=== PATIENT | female | born 1935 | race Caucasian/White ===

== ENCOUNTER 2016-06-11 21:49 | Inpatient (IN) ==
--- NOTE | 2016-06-11 22:27 | Emergency Department Note ---
START Narrative - START START: Dr. An called regarding the patient's status and had her sent in. The patient reportedly had an elevated BUN and creatinine per Dr. An is in acute renal failure. 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 She reports she has been feeling weak. There is no history of chest pain or mel shortness of breath. She denies any abdominal pain or diarrhea but threw up a few times yesterday there is no history of bloody emesis. There is no history of fall or syncope no trouble moving the arms or legs independently history of confusion. I have briefly seen the patient in order to start a workup, the patient will be managed by Dr. Jo and Perla Almendarez. Physical exam: The patient appears to be weak tired and Allegra but she is responsive and follows commands appropriately. HEENT normocephalic atraumatic cardiovascular S1 and S2 audible lungs decreased breath sounds bilaterally on anterior auscultation abdomen soft nontender nondistended no rebound rigidity or guarding extremities warm and well perfused without cyanosis muscle strength and sensation are generally intact cranial nerves II through XII are grossly intact. Preliminary studies have been ordered. An outpatient chest x-ray was already done today. Pending results. EKG shows a sinus rhythm without evidence of acute ST elevation. The T waves do not her to be peaked. Initial impression: Acute renal failure Hypoxemia Frail elderly The patient will likely require admission to the hospital.
[2016-06-11 22:39] LABS: Basophils % 0.5 %; Eosinophils # 0.7 K/mcL (0.0-0.6); Eosinophils % 11.7 %; Hematocrit 37.6 % (35.3-44.9); Hemoglobin 12.5 g/dL (11.5-15.4); Immature Granulocytes % 0.3 % (0-4); Lymphocytes # 1.1 K/mcL (0.6-4.6); Lymphocytes % 19.3 %; Mean Corpuscular HGB Conc 33.2 g/dL (31.6-35.5); Mean Corpuscular Hemoglobin 32.4 pg (28.0-33.3); Mean Corpuscular Volume 97.4 fL (83.0-100.0); Mean Platelet Volume 9.2 fL (9.4-12.4); Monocytes # 0.6 K/mcL (0.0-1.3); Monocytes % 9.5 %; Neutrophils # 3.5 K/mcL (1.6-8.9); Platelet Count 260 K/mcL (140-400); Red Blood Count 3.86 M/mcL (3.82-4.97); Red Cell Distribution Width 12.3 % (11.5-14.5); Segmented Neutrophils % 58.7 %
[2016-06-11] MEDS ORDERED: 0.9 % Sodium Chloride 1,000 ML IVC ONE (22:42)
[2016-06-11 22:44] LABS: Calcium 9.5 mg/dL (8.6-10.8); Magnesium 2.5 mg/dL (1.6-2.6); Potassium 4.3 mEq/L (3.5-4.5)
[2016-06-11 22:47] LABS: Albumin 3.6 g/dL (3.5-5.0); Albumin/Globulin Ratio 0.9 (1.1-2.2); Bilirubin,Direct 0.2 mg/dL (0.0-0.5); Bilirubin,Indirect 0.3 mg/dL (0.0-1.2); Bilirubin,Total 0.5 mg/dL (0.2-1.2); Globulin 3.8 g/dL (2.4-3.5); Total Protein 7.4 g/dL (6.0-8.3)
[2016-06-11] MEDS ORDERED: Ondansetron 4 MG/2 ML VIAL IVP ONE (23:30)
[2016-06-11] MEDS ORDERED: *HR* Morphine 2 MG/ML SYRINGE IV ONE (23:30)
--- NOTE | 2016-06-11 23:34 | Emergency Department Note ---
Disposition Clinical Impression: Acute renal failure Qualifiers: Acute renal failure type: unspecified Qualified Code(s): N17.9 - Acute kidney failure, unspecified Disposition: Admitted As Inpatient Condition: Fair General Adult HPI - General Chief complaint: ED General Medical Stated complaint: Kidney issue Time Seen by Provider: 06/11/16 23:02 Source: patient Mode of arrival: private vehicle Limitations: no limitations Nursing Notes Reviewed: Yes Vital Signs Reviewed: Yes - History of Present Illness Pt Subjective Complaint: weak all over, can't eat, back pain, called by PCP to come to ER - [facility]. Onset (ago): week(s) ("since ") Location: back Radiation: non-radiation Pain Severity: moderate, severe Pain Scale: 8 Quality: aching, constant Consistency: constant Improves with: nothing Worsens with: movement Associated symptoms: Reports: malaise, nausea/vomiting (vomited yesterday twice) , shortness of breath (a little bit today) Treatments Prior to Arrival: none - Related Data Home Medications Medication Instructions Recorded Confirmed Atenolol [Tenormin] 25 mg PO DAILY 01/10/15 06/11/16 Losartan/Hydrochlorothiazide 1 each PO DAILY 02/02/16 06/11/16 [Hyzaar 100-12.5 Tablet] Anastrozole [Arimidex] 1 mg PO DAILY 06/11/16 06/11/16 Fluticasone Propionate Nasal 50 mcg NS BID 06/11/16 06/11/16 [Flonase] Ipratropium Stark 1 spray NS BID 06/11/16 06/11/16 Multivitamin [Multi-Day Vitamins] 1 each PO DAILY 06/11/16 06/11/16 Previous Rx's Medication Instructions Recorded OxyCODONE Immed Rel [Roxicodone 5 5 mg PO BID PRN #60 tab 01/11/16 MG] Venlafaxine XR (24 HR) [Effexor XR] 37.5 mg PO DAILY #90 cap.er.24h 01/11/16 Gabapentin [Neurontin] 300 mg PO BID #60 capsule 02/23/16 Tamoxifen Citrate 20 mg PO DAILY #30 tab 04/05/16 Valacyclovir HCl [Valtrex] 1,000 mg PO Q12H #10 tab 04/05/16 Allergies Allergy/AdvReac Type Severity Reaction Status Date / Time KELSEY Inhibitors AdvReac Cough Verified 01/10/15 13:07 All systems ED: reviewed and negative except as stated. Constitutional: Reports: weakness. Denies: fever, chills, night sweats Eyes: Denies: vision change ENT ED: Reports: other (mouth and throat are very dry). Denies: ear pain, throat pain, congestion, dysphagia Cardiovascular: Reports: chest pain ("tightness under breasts when lying supine "), dyspnea on exertion. Denies: palpitations, orthopnea, edema, syncope Respiratory: Reports: dyspnea ("a little short of breath today"). Denies: cough , wheezes, hemoptysis, stridor, sputum production Gastrointestinal: Reports: nausea (constant, for weeks), vomiting (twice yesterday). Denies: abdominal pain, diarrhea, constipation (Last BM was yesterday), hematemesis, melena, hematochezia Genitourinary: Reports: other (decreased urine output). Denies: urgency, dysuria, frequency, hematuria Musculoskeletal: Reports: as per HPI, back pain. Denies: joint swelling Integumentary: Denies: rash Neurological: Reports: weakness ("all over"). Denies: headache, confusion, vertigo Hematological/Lymphatic: Denies: easy bleeding, easy bruising, lymphadenopathy Past Medical History - Past Medical History Attestation: Yes The following information was validated with the patient. Source: patient Medical history: Reports: cancer, hypertension, other (spinal stenosis) Surgical history: Reports: hysterectomy, other Psychiatric history: Reports: no psych history - Social History Smoking Status: Former smoker Alcohol use: Reports: none Drug use: Reports: none Physical Exam - General Limitations: no limitations General appearance: alert, in no apparent distress, cachectic - Head Head exam: atraumatic, normocephalic, normal inspection - Eye Eye exam: Present: normal appearance, PERRL, EOMI. Absent: scleral icterus, conjunctival injection, nystagmus, miosis, mydriasis, periorbital swelling - ENT ENT exam: mucous membranes dry - Neck Neck exam: Present: normal inspection, full ROM, trachea midline. Absent: tenderness, meningismus, lymphadenopathy - Chest Chest inspection: Present: normal inspection, symmetric chest wall rise. Absent : tenderness - Respiratory Respiratory exam: Present: normal lung sounds bilaterally. Absent: respiratory distress, wheezes, stridor, accessory muscle use, prolonged expiratory phase - Cardiovascular Cardiovascular exam: Present: regular rate, normal rhythm, normal heart sounds - Abdominal Exam Abdominal exam: Present: soft, tenderness, diminished bowel sounds. Absent: distention, guarding, rebound, rigidity, mass Abdominal tenderness: Present: RUQ, LUQ, mild - Extremities Exam Extremities exam: Present: normal inspection, full ROM. Absent: pedal edema - Back Exam Back exam: Present: normal inspection, CVA tenderness (R), CVA tenderness (L) - Neurological Exam Neurological exam: Present: alert, oriented X3, CN II-XII intact - Psychiatric Psychiatric exam: Present: normal affect, normal mood - Skin Skin exam: Present: warm, dry, intact, normal color Course Vital Signs Temperature 98.1 F 06/11/16 21:52 Pulse Rate 63 06/11/16 21:52 Respiratory Rate 14 06/11/16 21:52 Blood Pressure 114/70 06/11/16 21:52 O2 Sat by Pulse Oximetry 91 L 06/11/16 21:52 Temperature 97.8 F 06/12/16 07:51 Pulse Rate 52 06/12/16 07:51 Respiratory Rate 16 06/12/16 07:51 Blood Pressure 105/66 06/12/16 07:51 O2 Sat by Pulse Oximetry 100 06/12/16 07:51 Oxygen Delivery Oxygen Delivery Nasal Cannula Medical Decision Making - Lab Data Result diagrams: 06/11/16 22:17 06/11/16 22:17 Lab Results 06/11/16 06/11/16 06/11/16 Range/Units 22:17 22:17 22:17 WBC 5.9 (4.3-11.1) K/mcL RBC 3.86 (3.82-4.97) M/mcL Hgb 12.5 (11.5-15.4) g/dL Hct 37.6 (35.3-44.9) % MCV 97.4 (83.0-100.0) fL MCH 32.4 (28.0-33.3) pg MCHC 33.2 (31.6-35.5) g/dL RDW 12.3 (11.5-14.5) % Plt Count 260 (140-400) K/mcL MPV 9.2 L (9.4-12.4) fL Immature Gran % 0.3 (0-4) % Seg Neutrophils % 58.7 % Lymphocytes % 19.3 % Monocytes % 9.5 % Eosinophils % 11.7 % Basophils % 0.5 % Neutrophils # 3.5 (1.6-8.9) K/mcL Lymphocytes # 1.1 (0.6-4.6) K/mcL Monocytes # 0.6 (0.0-1.3) K/mcL Eosinophils # 0.7 H (0.0-0.6) K/mcL Basophils # 0.0 (0.0-0.2) K/mcL Sodium 136 (136-145) mEq/L Potassium 4.3 (3.5-4.5) mEq/L Chloride 103 (98-109) mEq/L Carbon Dioxide 19 (19-29) mEq/L BUN 59 H (7-20) mg/dL Creatinine 5.02 H (0.57-1.11) mg/dL Est GFR ( Amer) 10 L (> 60) Est GFR (Non-Af Amer) 8 L (> 60) BUN/Creatinine Ratio 12 (6-26) Glucose 132 H (70-99) mg/dL Calculated Osmolality 300 (280-300) Calcium 9.5 (8.6-10.8) mg/dL Magnesium 2.5 (1.6-2.6) mg/dL Total Bilirubin (0.2-1.2) mg/dL Direct Bilirubin (0.0-0.5) mg/dL Indirect Bilirubin (0.0-1.2) mg/dL AST (5-34) Units/L ALT (0-55) Units/L Alkaline Phosphatase (38-126) Units/L Troponin I 0.00 (0-0.03) ng/mL B-Natriuretic Peptide (0-100) pg/mL Serum Total Protein (6.0-8.3) g/dL Albumin (3.5-5.0) g/dL Globulin (2.4-3.5) g/dL Albumin/Globulin Ratio (1.1-2.2) 06/11/16 06/11/16 Range/Units 22:17 22:17 WBC (4.3-11.1) K/mcL RBC (3.82-4.97) M/mcL Hgb (11.5-15.4) g/dL Hct (35.3-44.9) % MCV (83.0-100.0) fL MCH (28.0-33.3) pg MCHC (31.6-35.5) g/dL RDW (11.5-14.5) % Plt Count (140-400) K/mcL MPV (9.4-12.4) fL Immature Gran % (0-4) % Seg Neutrophils % % Lymphocytes % % Monocytes % % Eosinophils % % Basophils % % Neutrophils # (1.6-8.9) K/mcL Lymphocytes # (0.6-4.6) K/mcL Monocytes # (0.0-1.3) K/mcL Eosinophils # (0.0-0.6) K/mcL Basophils # (0.0-0.2) K/mcL Sodium (136-145) mEq/L Potassium (3.5-4.5) mEq/L Chloride (98-109) mEq/L Carbon Dioxide (19-29) mEq/L BUN (7-20) mg/dL Creatinine (0.57-1.11) mg/dL Est GFR ( Amer) (> 60) Est GFR (Non-Af Amer) (> 60) BUN/Creatinine Ratio (6-26) Glucose (70-99) mg/dL Calculated Osmolality (280-300) Calcium (8.6-10.8) mg/dL Magnesium (1.6-2.6) mg/dL Total Bilirubin 0.5 (0.2-1.2) mg/dL Direct Bilirubin 0.2 (0.0-0.5) mg/dL Indirect Bilirubin 0.3 (0.0-1.2) mg/dL AST 18 (5-34) Units/L ALT 21 (0-55) Units/L Alkaline Phosphatase 65 (38-126) Units/L Troponin I (0-0.03) ng/mL B-Natriuretic Peptide 26 (0-100) pg/mL Serum Total Protein 7.4 (6.0-8.3) g/dL Albumin 3.6 (3.5-5.0) g/dL Globulin 3.8 H (2.4-3.5) g/dL Albumin/Globulin Ratio 0.9 L (1.1-2.2) Attestation Statement - Attestation Attestation: For this encounter, I have reviewed the resident, [employer], or PA documentation, treatment plan, and medical decision making; and I have had face to face time with this patient. 80-year-old female presents with increasing weakness and fatigue over the past 3 weeks. Patient states that she never had symptoms like this before in the past. She was evaluated by her primary care provider in the office but was unable to urinate. Further evaluation reveals acute renal failure. Patient denies recent trauma or changes in her medications. On physical examination the patient reports mild suprapubic pain without evidence of CVA tenderness or other abdominal guarding or rigidity. Lungs are clear to auscultation bilaterally. Patient will be admitted to the hospital for further care and evaluation. Patient is comfortable with the plan for admission.
[2016-06-12 03:14] LABS: Bilirubin,Urine Small (Negative); Blood,Urine Trace (Negative); Clarity,Urine Cloudy (Clear); Color,Urine Yellow (Yellow); Glucose,Urine (UA) Normal (Normal); Ketones,Urine Trace mg/dL (Negative); Leukocyte Esterase,Urine Moderate (Negative); Nitrite,Urine Positive (Negative); PH,Urine 5.5 pH Units (5.0-8.0); Protein,Urine Trace mg/dL (Neg-Trace); Specific Gravity,Urine 1.018 (1.010-1.025); Urobilinogen,Urine Normal (Normal)
[2016-06-12 03:17] LABS: Bacteria,Urine Many per hpf (None-Few); Hyaline Casts,Urine Few per lpf (None-Few); Squamous Epithelial Cell,Urine Many per lpf (None-Few); WBC,Urine 50-100 per hpf (0-3)
[2016-06-12] MEDS ORDERED: *HR* Morphine 2 MG/ML SYRINGE IVP PRN (04:06)
[2016-06-12] MEDS ORDERED: Ondansetron 4 MG/2 ML VIAL IVP PRN (04:06)
[2016-06-12] MEDS ORDERED: Naloxone 0.4 MG/ML INJ IVP PRN (04:06)
[2016-06-12] MEDS ORDERED: Acetaminophen 325 MG TABLET PO PRN (04:06)
[2016-06-12] MEDS ORDERED: *HR* OxyCODONE Immed Rel 5 MG TABLET PO PRN ×2 (04:06→17:46)
--- NOTE | 2016-06-12 04:30 | Internal Med History&Physical ---
Date of Encounter: 06/12/16 Time of Encounter: 04:00 Assessment and Plan (1) Acute kidney injury superimposed on CKD Current visit: Yes Status: Acute . (2) Hypoxemia Current visit: Yes Status: Acute . (3) Urinary tract infection Current visit: Yes Status: Acute . Qualifiers: Urinary tract infection type: acute cystitis Hematuria presence: with hematuria Qualified Code(s): N30.01 - Acute cystitis with hematuria (4) Breast cancer, right Current visit: Yes Status: Resolved . Qualifiers: Breast location: unspecified site of breast Patient gender: female Qualified Code(s): C50.911 - Malignant neoplasm of unspecified site of right female breast (5) Acute hypercapnic respiratory failure Current visit: Yes Status: Acute . (6) Metabolic acidosis Current visit: Yes Status: Acute . (7) Hyperglycemia, unspecified Current visit: Yes Status: Acute . (8) Hypocalcemia Current visit: Yes Status: Acute . (9) Secondary hyperparathyroidism (of renal origin) Current visit: Yes Status: Acute . (10) COPD suggested by initial evaluation Current visit: Yes Status: Acute . (11) Former very heavy cigarette smoker (more than 40 per day) Current visit: Yes Status: Chronic . (12) Renal mass of unknown nature Current visit: Yes Status: Acute . (13) History of lumpectomy of right breast Current visit: Yes Status: Chronic . (14) History of tamoxifen therapy Current visit: Yes Status: Chronic . Internal Medicine - H&P: HPI Chief complaint: Flank pain. Weakness. Admitted From: Emergency Dept Plans for Post Hospital Care: Home History of present illness: Ms. Narayan is a 80 year old female with history significant for hypertension, right breast cancer invasive ductal carcinoma s/p lumpectomy, sentinel node biopsy and adjuvant chemotherapy(tamoxifen), chronic sinorhinitis/allergic rhinitis, depression and anxiety, CKD III, osteoarthritis, osteopenia, lumbar spinal stenosis/LBP, ?COPD, former smoker The patient was visited and interviewed and examined. The patient is admitted to [facility] via the emergency department request of her primary care physician. The patient had been feeling ill for several weeks since the holiday season but worse in the days leading up to admission that led her to be seen by her PCP for evaluation. Several tests were obtained which showed a markedly elevation in her BUN and creatinine spurring her PCP to encourage her to present to the ED for evaluation of new onset, acute renal failure. The patient described an ongoing feeling of generalized weakness. Diffuse body aches. He experienced some nauseation with emesis. Denied any hematemesis melena or red blood per rectum or watery diarrhea. She acknowledges some chills but denies any overt fever or sweats. Denies any syncopal or presyncopal complaints chest pain PND orthopnea or edema. Denied any chest pain abdominal pain. She did experience some back/ flank pain. Denies rash. Acknowledged a generalized headache. Denied any visual disturbances unilateral weakness slurred speech alteration in mental status. Which is some shortness of breath at rest and with activity but without cough or chest congestion or sputum production and dry. Mouth and throat.. Cannot acknowledge any sick contacts. Denies any travel. Vaccinations are reportedly up-to-date for this season. Findings in the ED: Temperature 98.1 pulse 63 respirations 16 BP 114-142/70-78 titration 91% at 2 L per nasal cannula. WBC 5.9 hemoglobin 12.5 platelets 260,000. MPV 9.2. Differential showed a slight increase in eosinophil. Metabolic panel normal except BUN 59 creatinine 5.02 GFR 8. Glucose 132 osmolality 300. Troponin 0.00. BNP 26. Hepatic function normal. Venous blood gas pH 7.29 PCO2 53 PO2 48 bicarbonate 25. Urinalysis turbid appearance. Small blood. Large leukocyte esterase. 15 RBC with numerous to count WBC. Many epithelial cells. Many bacteria. CT abdomen/pelvis no contrast demonstrates no acute process. No hydronephrosis. Enlarging soft tissue density in the right breast. Minor atelectasis versus scarring middle lobe. Left lower lobe pulmonary nodules. There are no diverticulum. No bowel obstruction. Appendix not identified. Status post hysterectomy. Bladder grossly negative. No pelvic mass or adenopathy. No evidence of mesenteric stranding and free fluid. Aorta caliber within normal limits. Spiculated soft tissue density in the deep fat of the right breast. Changes in the lumbar spine. Preliminary impression suggests acute on chronic stage V kidney injury in the setting of severe acute urinary tract infection. Radiographically there is no evidence for obstruction contributing to acute events. Baseline creatinine in 2016 ranged between 1.3- 1.76 and GFR of 28-40. Indeed chronic kidney disease stage III has been present as far back as early 2014. Etiology for renal function decline is not done readily apparent. Presentation is noteworthy for degree of apparent toxemia and discomfort the patient is experiencing. However, systemic inflammatory response syndrome or sepsis criteria and are fully mad at the time of admission. Chest tingly although the patient does not carry a acknowledge diagnosis of COPD given her remote history of significant tobacco usage her venous blood gas does show degree of CO2 retention and acidosis coinciding with her shortness of breath complaint. Patient presents further risks for acute clinical decline and morbidity given her presenting chief complaints clinical findings, frailty and comorbidities. Workup and treatment will progress comprehensively.. Cumulative laboratory and radiographic data base was reviewed, considered and discussed. Pertinent ancillary medical records including ECW and PCI documentation, when available, was reviewed and considered. Given the patient's presenting concerns, past medical history, clinical findings and symptoms, she is admitted at this time will undergo further evaluation and disposition. Orders were written as per the computerized physician blood bank order control clerk system.......................................................................... .................... Consultative opinion and will be sought as clinical circumstances justify. Initial consultative opinion has been requested of nephrology. Pain management needs will be addressed. Laboratory and radiographic data base will be updated as appropriate. Studies include: Cultures of blood and urine and sputum, cardiac injury panel, BNP, cpk , metabolic and hematologic panel, magnesium, phosphorus, ionized calcium, thyroid panel, lipid profile, A1c, C-peptide, CRP, sedimentation rate, respiratory infection profile, respiratory virus panel, blood gas, urinalysis, PTH intact, coagulation panel, acute hepatitis profile, random urine assays, lactic acid, serologies, etc. Precautions: Aspiration, fall, delirium protocol/surveillance initiated. Telemetry with continuous hemodynamic monitoring and pulse oximetry initiated. Orthostatic vital signs Empiric antibody coverage: Intravenous Rocephin pending culture data. Special studies: CT abd/pelvis, chest x-ray, telemetry, EKG, bladder scan, postvoid residual, ultrasound retroperitoneum. Pulmonary toilet: Incentive spirometry. When necessary aerosol bronchodilator, mucolytic, antitussive. Supplemental oxygen. Corticosteroid therapy prn. CPAP /BiPAP supplemental oxygen delivery prn. Aerosol Mucomyst therapy prn. Fluid and electrolyte repletion efforts will proceed. Careful attention to fluid balance and renal recovery will be emphasized. Avoidance of nephrotoxic exposure and adverse drug drug interaction in the setting of impaired renal function will be monitored closely. Correction of metabolic and acid-base deficits will be emphasized. Acute coronary syndrome protocol/surveillance initiated. DVT and PUD prophylaxis initiated: PPI therapy, intermittent pneumatic cuffs. Subcutaneous heparin. Early ambulation will be encouraged. Immunization updates recommended. Influenza and pneumococcal vaccinations as part of ongoing preventative healthcare recommendations strongly recommended. Smoking cessation counseling briefly addressed. Patient is a former smoker. Advanced care directive discussion briefly addressed. Patient does not declare any healthcare restrictions at this time. Cardiovascular risk appraisal and cardiovascular risk reduction efforts will be emphasized. Physical and occupational therapy may be consulted to evaluate/assess patient's functional capacity and progress mobility if her circumstances warrant. Outpatient medication schedules will be reviewed confirmed and facilitated as appropriate. Reconciliation of home treatments including adjustments, substitutions and reintroduction into the treatment regimen will address necessary maintenance therapies for chronic pre-existing medical conditions. Plan of care has been reviewed and discussed in detail with the patient. Questions addressed. Hospital course is dependent upon collective clinical findings, treatment response and potential consultative interventions. Patient is at risk for further acute clinical decline and morbidity due to her advanced age, presenting chief complaints, findings and comorbidities. Condition is serious. Prognosis is cautiously optimistic. CODE STATUS is full. Past Med Surg Social Fam HX - Past Medical History Source: old records reviewed Medical history: arthritis, cancer, hypertension, malignancy, osteoporosis, other Psychiatric history: anxiety - Past Surgical History Surgical History: breast surgery, cancer surgery, cataract, cholecystectomy, hysterectomy, ALINA/BSO, other - Social History Smoking Status: Former smoker Packs per day: Smoked 2 packs per day for 20 years. Quit smoking 20 years ago. Smokeless Tobacco Status: No Alcohol use: none Drug use: none Occupational status: retired Current living situation: Home - Independent Activity Level: Independent ambulation, Mostly sedentary Recent Out of Country Travel Within the Last 8 Weeks: No - Family History Mother History Unknown: Yes Adopted: Yes Name: Agnes Mcdaniel Family Member Ethnicity: Non- Living Status: Age at : 66 Cause of : paratenitis Hx Family Cardiac Disorders: No Hx Family Respiratory Disorders: No Hx Family Cancer: No Hx Family GI Disorders: No Hx Family Genitourinary Disorders: No Hx Family Endocrine Disorder: Yes Hx Family Musculoskeletal Disorders: No Hx Family Neuromuscular Disorders: No Hx Family Neurologic Disorders: No Hx Family HEENT Disorders: No Hx Family Autoimmune Disorders: No Hx Family Reproductive Disorders: No Hx Family Psychosocial Disorders: No Hx Family Medical Disorders: No Internal Medicine - H&P: Meds Atenolol [Tenormin] 25 mg PO DAILY 01/10/15 [History] OxyCODONE Immed Rel [Roxicodone 5 MG] 5 mg PO BID PRN #60 tab 01/11/16 [Rx] Venlafaxine XR (24 HR) [Effexor XR] 37.5 mg PO DAILY #90 cap.er.24h 01/11/16 [Rx ] Losartan/Hydrochlorothiazide [Hyzaar 100-12.5 Tablet] 1 each PO DAILY 02/02/16 [ History] Gabapentin [Neurontin] 300 mg PO BID #60 capsule 02/23/16 [Rx] Tamoxifen Citrate 20 mg PO DAILY #30 tab 04/05/16 [Rx] Valacyclovir HCl [Valtrex] 1,000 mg PO Q12H #10 tab 04/05/16 [Rx] Anastrozole [Arimidex] 1 mg PO DAILY 06/11/16 [History] Fluticasone Propionate Nasal [Flonase] 50 mcg NS BID 06/11/16 [History] Ipratropium [place] 1 spray NS BID 06/11/16 [History] Multivitamin [Multi-Day Vitamins] 1 each PO DAILY 06/11/16 [History] Allergies KELSEY Inhibitors Adverse Reaction (Verified 01/10/15 13:07) Cough All Systems PM: A 10-system review of systems was performed and is negative for pertinent findings except as documented above in the HPI. - Constitutional Constitutional: as per HPI, malaise, no chills, no fever(s), no night sweats - EENT Eyes: as per HPI, no change in vision, no discharge, no pain, no photophobia Ears: as per HPI, no ear discharge, no ear pain, no tinnitus Nose, mouth and throat: as per HPI, no dysphagia, no nasal discharge, no neck pain, no sore throat - Breasts Breasts: as per HPI, other - Cardiovascular Cardiovascular ROS IM: as per HPI, no chest pain, no diaphoresis, no dyspnea, no lightheadedness, no palpitations, no syncope - Respiratory Respiratory: as per HPI, no cough, no dyspnea, no wheezing, no excessive phlegm production - Gastrointestinal Gastrointestinal: as per HPI, no abdominal pain, no diarrhea, no hematemesis, no hematochezia, no melena, no nausea, no vomiting - Genitourinary Genitourinary: as per HPI, flank pain, other, no change in urinary stream, no dysuria, no hematuria Menstruation: as per HPI, post hysterectomy - Musculoskeletal Musculoskeletal ROS IM: as per HPI, no numbness, no tingling - Integumentary Integumentary IM: as per HPI, no rash, no unusual bruising - Neurological Neurological ROS: as per HPI, no confusion, no convulsions, no focal weakness, no numbness, no tingling, no tremor(s) - Psychiatric Psychiatric: as per HPI - Endocrine Endocrine IM: as per HPI - Hematologic/Lymphatic Hematologic/Lymphatic: as per HPI, no easy bruising - Allergic/Immunologic Allergic/Immunologic: as per HPI - Constitutional Vitals: Temp Pulse Resp BP Pulse Ox 97.6 F 55 18 129/66 98 06/12/16 02:32 06/12/16 02:32 06/12/16 02:32 06/12/16 02:32 06/12/16 02:32 General appearance: Present: mild distress, A&O X 3, answers questions appropriately - Head Head exam: Present: atraumatic, normocephalic - Eye Eye exam: Present: EOMI, PERRL, conjuntiva pink, sclera anicteric Pupils: Present: normal accommodation, PERRL - ENT ENT exam: Present: mucous membranes moist, normal external ear exam, normal oropharynx - Neck Neck exam general surgery: Present: full ROM, supple, trachea midline. Absent: lymphadenopathy, tenderness, nuchal rigidity - Respiratory Respiratory exam: Present: decreased breath sounds, CTAB. Absent: accessory muscle use, rales, rhonchi, wheezes - Cardiovascular Cardiovascular exam: Present: distant heart sounds, RRR, +S1, +S2. Absent: diastolic murmur, gallop, rubs, systolic murmur - GI/Abdominal GI/Abdominal exam: Present: diminished bowel sounds, soft, no peritoneal signs. Absent: distended, tenderness - Extremities Exam Extremities exam: Present: full ROM, warm, radial pulses palpable and symetrical. Absent: calf tenderness, cyanotic, pedal edema - Neurological Exam Neurological exam: Present: alert, altered, CN II-XII intact, oriented X3, no focal deficits. Absent: pronater drift, facial droop, speech deficit - Expanded Neurological Exam Coma Scale Eye Opening: Spontaneous Coma Scale Motor Response: Obeys Commands Coma Scale Verbal Response: Oriented Coma Scale Total: 15 - Psychiatric Psychiatric exam: Present: anxious, normal affect - Expanded Psychiatric Exam Focused psych exam: Present: restlessness - Skin Skin exam: Present: dry, intact, warm. Absent: petechiae, rash, urticaria, vesicles Internal Med - H&P Results - Labs CBC & Chem 7: 06/11/16 22:17 06/11/16 22:17 Labs: Urine 06/12/16 Range/Units 03:00 Urine Color Yellow (Yellow) Urine Clarity Cloudy A (Clear) Urine pH 5.5 (5.0-8.0) pH Units Ur Specific [place] 1.018 (1.010-1.025) Urine Protein Trace (Neg-Trace) mg/dL Urine Glucose (UA) Normal (Normal) mg/dL - Impressions Vital Signs Temp Pulse Resp BP Pulse Ox 06/12/16 02:32 97.6 F 55 18 129/66 98 06/12/16 01:53 98.1 F 16 107/66 06/12/16 01:38 55 16 107/66 100 06/11/16 23:42 63 16 142/78 06/11/16 21:52 98.1 F 63 14 114/70 91 L Intake and Output 06/11/16 06/11/16 06/12/16 15:59 23:59 07:59 Intake Total 0 / 0 Balance 0 / 0 Intake: Oral 0 / 0 Other: Weight 64.41 kg 67.8 kg Patient Weight 06/12/16 23:59 Weight 67.8 kg Short CBC 06/11/16 Range/Units 22:17 WBC 5.9 (4.3-11.1) K/mcL Hgb 12.5 (11.5-15.4) g/dL Hct 37.6 (35.3-44.9) % Plt Count 260 (140-400) K/mcL Neutrophils # 3.5 (1.6-8.9) K/mcL BMP 06/11/16 Range/Units 22:17 Sodium 136 (136-145) mEq/L Potassium 4.3 (3.5-4.5) mEq/L Chloride 103 (98-109) mEq/L Carbon Dioxide 19 (19-29) mEq/L BUN 59 H (7-20) mg/dL Creatinine 5.02 H (0.57-1.11) mg/dL Glucose 132 H (70-99) mg/dL Calcium 9.5 (8.6-10.8) mg/dL Cardiac Enzymes 06/11/16 Range/Units 22:17 Troponin I 0.00 (0-0.03) ng/mL Liver Function 06/11/16 Range/Units 22:17 Total Bilirubin 0.5 (0.2-1.2) mg/dL Direct Bilirubin 0.2 (0.0-0.5) mg/dL AST 18 (5-34) Units/L ALT 21 (0-55) Units/L Alkaline Phosphatase 65 (38-126) Units/L Albumin 3.6 (3.5-5.0) g/dL Urine 06/12/16 Range/Units 03:00 Urine Color Yellow (Yellow) Urine Clarity Cloudy A (Clear) Urine pH 5.5 (5.0-8.0) pH Units Ur Specific [place] 1.018 (1.010-1.025) Urine Protein Trace (Neg-Trace) mg/dL Urine Glucose (UA) Normal (Normal) mg/dL Abnormal lab results MPV 9.2 fL (9.4-12.4) L 06/11/16 22:17 Eosinophils # 0.7 K/mcL (0.0-0.6) H 06/11/16 22:17 BUN 59 mg/dL (7-20) H 06/11/16 22:17 Creatinine 5.02 mg/dL (0.57-1.11) H 06/11/16 22:17 Est GFR ( Amer) 10 (> 60) L 06/11/16 22:17 Est GFR (Non-Af Amer) 8 (> 60) L 06/11/16 22:17 Glucose 132 mg/dL (70-99) H 06/11/16 22:17 Globulin 3.8 g/dL (2.4-3.5) H 06/11/16 22:17 Albumin/Globulin Ratio 0.9 (1.1-2.2) L 06/11/16 22:17 Urine Clarity Cloudy (Clear) A 06/12/16 03:00 Urine Ketones Trace mg/dL (Negative) H 06/12/16 03:00 Urine Blood Trace (Negative) H 06/12/16 03:00 Urine Nitrite Positive (Negative) A 06/12/16 03:00 Urine Bilirubin Small (Negative) H 06/12/16 03:00 Ur Leukocyte Esterase Moderate (Negative) H 06/12/16 03:00 Urine Microscopic RBC 5-15 per hpf (0-3) H 06/12/16 03:00 Urine Microscopic WBC 50-100 per hpf (0-3) H 06/12/16 03:00 Ur Squamous Epith Cells Many per lpf (None-Few) H 06/12/16 03:00 Urine Bacteria Many per hpf (None-Few) H 06/12/16 03:00 Ur Culture Indicated? YES (NO) A 06/12/16 03:00 Allergies Allergy/AdvReac Type Severity Reaction Status Date / Time KELSEY Inhibitors AdvReac Cough Verified 01/10/15 13:07 Laboratory Results WBC 5.9 K/mcL (4.3-11.1) 06/11/16: RBC 3.86 M/mcL (3.82-4.97) 06/11/16 22: Hgb 12.5 g/dL (11.5-15.4) 06/11/16: Hct 37.6 % (35.3-44.9) 06/11/16 22: MCV 97.4 fL (83.0-100.0) 06/11/16 22: MCH 32.4 pg (28.0-33.3) 06/11/16: MCHC 33.2 g/dL (31.6-35.5) 06/11/16: RDW 12.3 % (11.5-14.5) 06/11/16 22:17 Plt Count 260 K/mcL (140-400) 06/11/16 22: MPV 9.2 fL (9.4-12.4) L 06/11/16 22:17 Immature Gran % 0.3 % (0-4) 06/11/16 22:17 Seg Neutrophils % 58.7 % 06/11/16 22:17 Lymphocytes % 19.3 % 06/11/16 22:17 Monocytes % 9.5 % 06/11/16 22:17 Eosinophils % 11.7 % 06/11/16 22:17 Basophils % 0.5 % 06/11/16 22:17 Neutrophils # 3.5 K/mcL (1.6-8.9) 06/11/16 22:17 Lymphocytes # 1.1 K/mcL (0.6-4.6) 06/11/16 22: Monocytes # 0.6 K/mcL (0.0-1.3) 06/11/16 22: Eosinophils # 0.7 K/mcL (0.0-0.6) H 06/11/16 22:17 Basophils # 0.0 K/mcL (0.0-0.2) 06/11/16 22:17 Sodium 136 mEq/L (136-145) 06/11/16 22:17 Potassium 4.3 mEq/L (3.5-4.5) 06/11/16 22:17 Chloride 103 mEq/L (98-109) 06/11/16 22:17 Carbon Dioxide 19 mEq/L (19-29) 06/11/16 22:17 BUN 59 mg/dL (7-20) H 06/11/16 22:17 Creatinine 5.02 mg/dL (0.57-1.11) H 06/11/16 22:17 Est GFR ( Amer) 10 (> 60) L 06/11/16 22:17 Est GFR (Non-Af Amer) 8 (> 60) L 06/11/16 22:17 BUN/Creatinine Ratio 12 (6-26) 06/11/16 22:17 Glucose 132 mg/dL (70-99) H 06/11/16 22:17 Calculated Osmolality 300 (280-300) 06/11/16 22:17 Calcium 9.5 mg/dL (8.6-10.8) 06/11/16 22:17 Magnesium 2.5 mg/dL (1.6-2.6) 06/11/16 22: Total Bilirubin 0.5 mg/dL (0.2-1.2) 06/11/16 22: Direct Bilirubin 0.2 mg/dL (0.0-0.5) 06/11/16 22:17 Indirect Bilirubin 0.3 mg/dL (0.0-1.2) 06/11/16 22:17 AST 18 Units/L (5-34) 06/11/16 22: ALT 21 Units/L (0-55) 06/11/16 22: Alkaline Phosphatase 65 Units/L (38-126) 06/11/16 22: Troponin I 0.00 ng/mL (0-0.03) 06/11/16 22: B-Natriuretic Peptide 26 pg/mL (0-100) 06/11/16 22: Serum Total Protein 7.4 g/dL (6.0-8.3) 06/11/16 22: Albumin 3.6 g/dL (3.5-5.0) 06/11/16: Globulin 3.8 g/dL (2.4-3.5) H 06/11/16 22: Albumin/Globulin Ratio 0.9 (1.1-2.2) L 06/11/16 22:17 Urine Color Yellow (Yellow) 06/12/16 03:00 Urine Clarity Cloudy (Clear) A 06/12/16 03:00 Urine pH 5.5 pH Units (5.0-8.0) 06/12/16 03:00 Ur Specific [place] 1.018 (1.010-1.025) 06/12/16 03:00 Urine Protein Trace mg/dL (Neg-Trace) 06/12/16 03:00 Urine Glucose (UA) Normal mg/dL (Normal) 06/12/16 03:00 Urine Ketones Trace mg/dL (Negative) H 06/12/16 03:00 Urine Blood Trace (Negative) H 06/12/16 03:00 Urine Nitrite Positive (Negative) A 06/12/16 03:00 Urine Bilirubin Small (Negative) H 06/12/16 03:00 Urine Urobilinogen Normal mg/dL (Normal) 06/12/16 03:00 Ur Leukocyte Esterase Moderate (Negative) H 06/12/16 03:00 Urine Microscopic RBC 5-15 per hpf (0-3) H 06/12/16 03:00 Urine Microscopic WBC 50-100 per hpf (0-3) H 06/12/16 03:00 Ur Squamous Epith Cells Many per lpf (None-Few) H 06/12/16 03:00 Urine Bacteria Many per hpf (None-Few) H 06/12/16 03:00 Hyaline Casts Few per lpf (None-Few) 06/12/16 03:00 Ur Culture Indicated? YES (NO) A 06/12/16 03:00 Impressions Abdomen/Pelvis CT 06/12/16 00:01 IMPRESSION: 1. No acute process identified. No hydronephrosis. 2. Enlarging soft tissue density in the right breast. Correlation with mammography is recommended. D/ / Alex Banerjee MD / Alex Banerjee MD Interpreting Provider: Alex Banerjee MD
[2016-06-12] MEDS: *HR* Heparin 5,000 UNIT/ML VIAL SQ SCH ×2 (05:10→16:54)
[2016-06-12] MEDS: 0.9 % Sodium Chloride 1,000 ML IVC SCH ×2 (05:10→16:06)
[2016-06-12 06:52] LABS: Bilirubin,Urine Negative (Negative); Blood,Urine Small (Negative); Clarity,Urine Turbid (Clear); Color,Urine Yellow (Yellow); Glucose,Urine (UA) Normal (Normal); Ketones,Urine Negative (Negative); Leukocyte Esterase,Urine Large (Negative); Nitrite,Urine Negative (Negative); PH,Urine 5.5 pH Units (5.0-8.0); Protein,Urine Negative (Neg-Trace); Specific Gravity,Urine 1.017 (1.010-1.025); Urobilinogen,Urine Normal (Normal)
[2016-06-12 06:54] LABS: Bacteria,Urine Many per hpf (None-Few); Hyaline Casts,Urine None Seen per lpf (None-Few); Squamous Epithelial Cell,Urine Many per lpf (None-Few); WBC,Urine TNTC per hpf (0-3)
[2016-06-12 07:00] LABS: Creatinine,Urine 205 mg/dL; Microalbum/Creatinine Ratio,Ur 15 (0-30); Microalbumin,Urine 30 mg/L
[2016-06-12 07:11] LABS: VBG HCO3 25.5 mEq/L (21-27); VBG PH 7.29 pH Units (7.32-7.42)
[2016-06-12 07:26] LABS: INR 1.1; Prothrombin Time 11.8 Seconds (9.4-12.1)
[2016-06-12 07:27] LABS: Hemoglobin A1C 5.5 %
[2016-06-12 07:29] LABS: Activated Partial Thrombo Time 24.8 Seconds (26.0-36.0)
[2016-06-12 07:30] LABS: C-Reactive Protein 10 mg/L (Less than 5); Creatine Kinase 15 Units/L (29-168)
[2016-06-12 07:39] LABS: Chol/HDL Ratio 4.9 (0-4.9); Magnesium 2.2 mg/dL (1.6-2.6); Phosphorous 3.9 mg/dL (2.3-4.7)
[2016-06-12 07:54] LABS: Thyroid Stimulating Hormone 2.938 mcIU/mL (0.350-4.840)
--- NOTE | 2016-06-12 08:15 | Nephrology Consult Note ---
Date of Encounter: 06/12/16 Time of Encounter: 08:13 Assessment and Plan (1) Acute kidney injury superimposed on CKD Current Visit: Yes Status: Acute Patient has acute kidney injury superimposed on chronic kidney disease. Baseline creatinine appears to be 1.3-1.76. This is occurring in the setting of generalized weakness and anorexia with decreased oral intake. Urinalysis suggested urinary tract infection as well. Patient is currently receiving IV fluids and says she feels somewhat better today. Urine culture is pending. Patient is been placed on empiric antibiotics. Post void bladder scan has been ordered. I am going to order renal ultrasound to further evaluate kidney size and rule out hydronephrosis. Hopefully the patient's renal function will improve with the current medical regimen and IV fluids. (2) Urinary tract infection Current Visit: Yes Status: Acute Qualifiers: Urinary tract infection type: acute cystitis Hematuria presence: with hematuria Qualified Code(s): N30.01 - Acute cystitis with hematuria (3) Breast cancer, right Current Visit: No Status: Chronic Qualifiers: Breast location: unspecified site of breast Patient gender: female Qualified Code(s): C50.911 - Malignant neoplasm of unspecified site of right female breast History of Present Illness - History of Present Illness This is a 80-year-old female who presented to emergency room with complaints of generalized weakness since about Shaggy time. Patient reports she has had a poor appetite. She has had some nausea with occasional vomiting. She has had one or 2 episodes of diarrhea. She was recently treated for urinary tract infection by her family practitioner. She says she was also recently diagnosed with fibromyalgia and was given a course of steroids. Patient presented with a creatinine of 5.02. Baseline creatinine ranges from 1.3-1.76. Most recent creatinine on May 15 was 1.76. Patient denies any previous history of chronic kidney disease. She does give a history of hematuria associated with urinary tract infections. Urinary tract symptoms include dysuria and discomfort. She also has had gross hematuria associated with urinary tract infections. Patient denies any difficulty in emptying her bladder. She has not been taking any nonsteroidal anti-inflammatory agents. She denies any lower extremity swelling. She denies any shortness of breath. She does have a history of hypertension for the past 2-3 years. She denies a history of diabetes. Past Med Surg Social Fam HX - Past Medical History Medical history: arthritis, cancer, hypertension, malignancy, osteoporosis, other Psychiatric history: anxiety - Past Surgical History Surgical History: breast surgery, cancer surgery, cataract, cholecystectomy, hysterectomy, ALINA/BSO, other - Social History Smoking Status: Former smoker Packs per day: Smoked 2 packs per day for 20 years. Quit smoking 20 years ago. Smokeless Tobacco Status: No Alcohol use: none Drug use: none - Family History Mother History Unknown: Yes Adopted: Yes Name: Agnes Mcdaniel Family Member Ethnicity: Non- Living Status: Age at : 66 Cause of : paratenitis Hx Family Cardiac Disorders: No Hx Family Respiratory Disorders: No Hx Family Cancer: No Hx Family GI Disorders: No Hx Family Genitourinary Disorders: No Hx Family Endocrine Disorder: Yes Hx Family Musculoskeletal Disorders: No Hx Family Neuromuscular Disorders: No Hx Family Neurologic Disorders: No Hx Family HEENT Disorders: No Hx Family Autoimmune Disorders: No Hx Family Reproductive Disorders: No Hx Family Psychosocial Disorders: No Hx Family Medical Disorders: No Medications and Allergies Atenolol [Tenormin] 25 mg PO DAILY 01/10/15 [History] OxyCODONE Immed Rel [Roxicodone 5 MG] 5 mg PO BID PRN #60 tab 01/11/16 [Rx] Venlafaxine XR (24 HR) [Effexor XR] 37.5 mg PO DAILY #90 cap.er.24h 01/11/16 [Rx ] Losartan/Hydrochlorothiazide [Hyzaar 100-12.5 Tablet] 1 each PO DAILY 02/02/16 [ History] Gabapentin [Neurontin] 300 mg PO BID #60 capsule 02/23/16 [Rx] Tamoxifen Citrate 20 mg PO DAILY #30 tab 04/05/16 [Rx] Valacyclovir HCl [Valtrex] 1,000 mg PO Q12H #10 tab 04/05/16 [Rx] Anastrozole [Arimidex] 1 mg PO DAILY 06/11/16 [History] Fluticasone Propionate Nasal [Flonase] 50 mcg NS BID 06/11/16 [History] Ipratropium [place] 1 spray NS BID 06/11/16 [History] Multivitamin [Multi-Day Vitamins] 1 each PO DAILY 06/11/16 [History] Allergies KELSEY Inhibitors Adverse Reaction (Verified 01/10/15 13:07) Cough Review of Systems Constitutional: weakness Eyes: bilateral: blurred vision (patient denies), diplopia (patient denies) Nose, mouth and throat: no dizziness, no headache(s) Cardiovascular: no chest pain, no palpitations Respiratory: no cough, no dyspnea Gastrointestinal: as per HPI, abdominal pain, nausea Genitourinary Female: pelvic pain, prolapse symptoms Musculoskeletal: back pain Integumentary: no hirsutism, no striae Neurological: as per HPI, weakness Psychiatric: no depression, no difficulty concentrating Endocrine: as per HPI Hematologic/Lymphatic: no easy bruising, no lymphadenopathy Exam - Vital Signs Vital signs: Initial Vital Signs Temp Pulse Resp BP Pulse Ox 98.1 F 63 14 114/70 91 L 06/11/16 21:52 06/11/16 21:52 06/11/16 21:52 06/11/16 21:52 06/11/16 21:52 Vital Signs - Last 8 Hours Temp Pulse Resp BP Pulse Ox 06/12/16 07:51 97.8 F 52 16 105/66 100 06/12/16 02:32 97.6 F 55 18 129/66 98 06/12/16 01:53 98.1 F 16 107/66 Intake and Output 06/11/16 06/12/16 06/12/16 23:59 07:59 15:59 Intake Total 0 / 0 Balance 0 / 0 Intake: Oral 0 / 0 Other: Weight 67.8 kg Blood Glucose* 95 Patient Weight 06/12/16 23:59 Weight 67.8 kg - General Appearance Exam: Patient is alert and oriented. She is in no acute distress. She appears somewhat frail. Neck supple. Carotids no bruits. Lungs symmetric breath sounds otherwise clear to auscultation. Heart regular rate and rhythm with a 2/ 6 systolic ejection murmur. There is no friction rub. Abdomen shows normal bowel sounds bruits masses or organomegaly. There is some generalized tenderness. There is no guarding or rigidity. Lower extremities show no peripheral edema. Results - Lab Results 06/11/16 22:17 06/11/16 22:17 Most recent lab results Calcium 9.5 mg/dL (8.6-10.8) 06/11/16 22:17 Phosphorus 3.9 mg/dL (2.3-4.7) 06/12/16 06:46 Magnesium 2.2 mg/dL (1.6-2.6) 06/12/16 06:46 Urine Creatinine 205 mg/dL 06/12/16 06:30 Consult Discharge Plan - Plan Referrals: Shwetha Addison MD [Primary Care Provider] -
--- NOTE | 2016-06-12 09:29 | Event Note ---
<Aysha Araya - Last Filed: 06/12/16 13:50> Date of Encounter: 06/12/16 Time of Encounter: 08:15 Ms. Narayan reports she is feeling better than when she was admitted to [facility] although she reports continued pain across her lower back. She states that she has had less burning with urination. She was able to eat some of her breakfast this morning which she reports she was not able to do prior to admission due to nausea. Pt admits to shortness of breath which she admits to having since Shaggy time. She is not on O2 at home, and is on NC supplementation at this time. Pt also presented with STONE with a creatinine of 5.02. Pt denies chest pain, headache, nausea or vomiting at this time. Exam: Head: Atraumatic, normocephalic Eyes: PERRL, sclera nonicteric ENT: Mucosa moist Neck: Supple, Trachea midline Lungs: CTAB no rhonchi, rales, wheezine Cardio: RRR, +S1, +S2 Abdomen: Normal bowel sounds, soft, diffusely tender Extremities: No pedal edema, no tenderness, DP +2 A/P: STONE superimosed on CKD: Pt presented with Creatinine of 5.02, which is above her baseline of 1.3-1.76 Urinalysis suggesting UTI, with urine culture pending IVF and Rocephin CT Abd/Pelvis demonstrated no acute process and no hydronephrosis Nephrology consulted, will follow recommendations Post void bladder scan ordered Renal ultrasound ordered per nephro Urinary Tract Infection: Urine cultures pending, currently on Rocephin for empirical treatment Beast Cancer, right: History of breast cancer CT abd/pelvis demonstrated enlarging soft tissue density in right breast, correlation with mammography is recommended <Marc Vasques - Last Filed: 06/12/16 19:10> Date of Encounter: 06/12/16 I examined this patient and my medical decision-making was reviewed with the Resident Physician Dr. Araya. I agree with the documented findings, disposition and treatment plan as described except to the extent set forth below. avoid nephrotoxins. Follow up BUN and creatinine the morning. Continue IV fluids and IV antibiotics.
[2016-06-12 11:02] LABS: Hepatitis B Surface Antigen Nonreactive (Nonreactive)
--- NOTE | 2016-06-12 14:48 | Electrocardiograph Report ---
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
[2016-06-12] MEDS: *HR* OxyCODONE Immed Rel 5 MG TABLET PO PRN (20:06)
[2016-06-13] MEDS: 0.9 % Sodium Chloride 1,000 ML IVC SCH ×3 (02:23→23:28)
[2016-06-13] MEDS: *HR* Heparin 5,000 UNIT/ML VIAL SQ SCH ×2 (06:16→17:08)
[2016-06-13 07:29] LABS: Hematocrit 28.1 % (35.3-44.9); Mean Corpuscular HGB Conc 32.4 g/dL (31.6-35.5); Mean Corpuscular Hemoglobin 32.5 pg (28.0-33.3); Mean Corpuscular Volume 100.4 fL (83.0-100.0); Mean Platelet Volume 9.4 fL (9.4-12.4); Platelet Count 185 K/mcL (140-400); Red Cell Distribution Width 12.3 % (11.5-14.5)
[2016-06-13 07:30] LABS: Hemoglobin 9.1 g/dL (11.5-15.4)
[2016-06-13 07:53] LABS: Albumin 2.6 g/dL (3.5-5.0); Bilirubin,Total 0.5 mg/dL (0.2-1.2); Calcium 8.3 mg/dL (8.6-10.8); Globulin 2.7 g/dL (2.4-3.5); Potassium 5.1 mEq/L (3.5-4.5); Total Protein 5.3 g/dL (6.0-8.3)
[2016-06-13 09:07] LABS: Basophils # 0.1 K/mcL (0.0-0.2); Eosinophils # 0.3 K/mcL (0.0-0.6); Lymphocytes # 0.9 K/mcL (0.6-4.6); Monocytes # 0.2 K/mcL (0.0-1.3); Neutrophils # 3.1 K/mcL (1.6-8.9)
[2016-06-13 09:08] LABS: Platelet Estimate Normal (Normal)
[2016-06-13 11:31] LABS: Hepatitis A Antibody IgM Nonreactive (Nonreactive); Hepatitis B Core IgM Nonreactive (Nonreactive); Hepatitis C Virus Antibody Nonreactive (Nonreactive)
--- NOTE | 2016-06-13 13:33 | Internal Med Progress Note ---
<Aysha Araya - Last Filed: 06/13/16 15:02> Date of Encounter: 06/13/16 Time of Encounter: 09:50 - Assessment and plan (1) Acute kidney injury superimposed on CKD Current Visit: Yes Status: Acute Assessment and plan: Presented with creatinine of 5.02, Today creatinine 2.18. Pts baseline is 1.3- 1.76 Urine culture demonstrated gram negative rods Rocephin and IVF Renal ultrasound demonstrated simple appearing left renal cyst, 2.3x1.8 hypoechoic lesion on medial aspect of the kidney which is not clearly visualized on transvrse view. No discrete correlate seen on recent CT and not seen on prvious ultrasound 09/07/2014. Recommended further evaluation. Will follow nephrology recommendations (2) Urinary tract infection Current Visit: Yes Status: Acute Assessment and plan: Urine cultures show gram negative rods Rocephin for antibiotic treatment at this time Qualifiers: Urinary tract infection type: acute cystitis Hematuria presence: with hematuria Qualified Code(s): N30.01 - Acute cystitis with hematuria (3) Breast cancer, right Current Visit: Yes Status: Resolved Assessment and plan: CT abd/pelvis demonstrated enlarging soft tissue density in right breast, correlation with mammography is recommended Consult to Oncology Qualifiers: Breast location: unspecified site of breast Patient gender: female Qualified Code(s): C50.911 - Malignant neoplasm of unspecified site of right female breast - Subjective Interval history: Pt reports she is feeling much better today. Her shortness of breath has improved. She states that her back pain has improved and she is no longer having urinary symptoms. - Constitutional Vitals: Temp Pulse Resp BP Pulse Ox 98.1 F 73 13 130/70 94 L 06/13/16 11:36 06/13/16 11:36 06/13/16 11:36 06/13/16 11:36 06/13/16 11:36 General appearance: Present: A&O X 3, no acute distress, answers questions appropriately - Head Head exam: Present: atraumatic, normal inspection, normocephalic - Eye Eye exam: Present: PERRL, conjuntiva pink, sclera anicteric - ENT ENT exam: Present: mucous membranes moist - Neck Neck exam general surgery: Present: supple, trachea midline - Respiratory Respiratory exam: Present: CTAB. Absent: rales, rhonchi, wheezes - Cardiovascular Cardiovascular exam: Present: RRR, +S1, +S2 - GI/Abdominal GI/Abdominal exam: Present: soft. Absent: guarding, rebound, tenderness - Extremities Exam Extremities exam: Present: warm. Absent: cyanotic, pedal edema - Neurological Exam Neurological exam: Present: alert, CN II-XII intact, oriented X3, no focal deficits - Skin Skin exam: Present: dry, intact Internal Medicine: Result - Labs CBC & Chem 7: 06/13/16 06:39 06/13/16 06:39 Labs: Short CBC 06/13/16 Range/Units 06:39 WBC 4.5 (4.3-11.1) K/mcL Hgb 9.1 L D (11.5-15.4) g/dL Hct 28.1 L (35.3-44.9) % Plt Count 185 (140-400) K/mcL Neutrophils # 3.1 (1.6-8.9) K/mcL BMP 06/13/16 06:39 Sodium 139 Potassium 5.1 H Chloride 113 H Carbon Dioxide 19 BUN 34 H D Creatinine 2.18 H D Glucose 91 Calcium 8.3 L Liver Function 06/13/16 Range/Units 06:39 Total Bilirubin 0.5 (0.2-1.2) mg/dL AST 15 (5-34) Units/L ALT 15 (0-55) Units/L Alkaline Phosphatase 47 (38-126) Units/L Albumin 2.6 L D (3.5-5.0) g/dL - ABG Interpretation ABG results: PT/INR, D-dimer PT 11.8 Seconds (9.4-12.1) 06/12/16 06:46 - Impressions Impressions Retroperitoneum Ultrasound 06/12/16 14:00 IMPRESSION: Simple appearing left renal cyst. 2.3 x 1.8 cm hypoechoic lesion medial aspect of the kidney which is not clearly visualized on transverse view. No discrete correlate seen on recent CT. This also was not seen on previous ultrasound 09/07/2014. Recommend further evaluation with dedicated CT or MRI of the kidneys with contrast. Patient cannot have contrast, recommend short interval follow-up with ultrasound. D/ / Alexia Reynoso MD / Alexia Reynoso MD Interpreting Provider: Alexia Reynoso MD Consult Discharge Plan - Plan Referrals: Shwetha Addison MD [Primary Care Provider] - 06/20/16 11:15 am (Please follow up as schedule..) <Marc Vasques - Last Filed: 06/13/16 17:58> Date of Encounter: 06/13/16 - Constitutional Vitals: Temp Pulse Resp BP Pulse Ox 98.2 F 73 14 105/65 95 06/13/16 15:35 06/13/16 15:35 06/13/16 15:35 06/13/16 15:35 06/13/16 15:35 Internal Medicine: Result - Labs CBC & Chem 7: 06/13/16 06:39 06/13/16 06:39 Labs: Short CBC 06/13/16 Range/Units 06:39 WBC 4.5 (4.3-11.1) K/mcL Hgb 9.1 L D (11.5-15.4) g/dL Hct 28.1 L (35.3-44.9) % Plt Count 185 (140-400) K/mcL Neutrophils # 3.1 (1.6-8.9) K/mcL BMP 06/13/16 06:39 Sodium 139 Potassium 5.1 H Chloride 113 H Carbon Dioxide 19 BUN 34 H D Creatinine 2.18 H D Glucose 91 Calcium 8.3 L Liver Function 06/13/16 Range/Units 06:39 Total Bilirubin 0.5 (0.2-1.2) mg/dL AST 15 (5-34) Units/L ALT 15 (0-55) Units/L Alkaline Phosphatase 47 (38-126) Units/L Albumin 2.6 L D (3.5-5.0) g/dL - ABG Interpretation ABG results: PT/INR, D-dimer PT 11.8 Seconds (9.4-12.1) 06/12/16 06:46 - Attending Attestation I examined this patient and my medical decision-making was reviewed with the Resident Physician. I agree with the documented findings, disposition and treatment plan as described except to the extent set forth below. Breast examination reveals a normal left breast with no masses no lymphadenopathy, right breast with scarring and retraction and some induration in the inferior part. No discharge or scaly lesions, no right axillary lump adenopathy palpated. We will consult oncology for evaluation of the right breast mass.
--- NOTE | 2016-06-13 13:52 | Nephrology Progress Note ---
Date of Encounter: 06/13/16 Time of Encounter: 13:50 - Assessment and Plan (1) Acute kidney injury superimposed on CKD Current Visit: Yes Status: Acute Patient has acute kidney injury in the setting of volume depletion and a urinary tract infection. Her renal function is improving with IV fluids and empiric M biotics. I will continue the IV fluids for another 24 hours. Renal ultrasound showed evidence of chronic kidney disease with increased echogenicity and a smaller right kidney. (2) Urinary tract infection Current Visit: Yes Status: Acute Qualifiers: Urinary tract infection type: acute cystitis Hematuria presence: with hematuria Qualified Code(s): N30.01 - Acute cystitis with hematuria (3) Breast cancer, right Current Visit: Yes Status: Resolved Qualifiers: Breast location: unspecified site of breast Patient gender: female Qualified Code(s): C50.911 - Malignant neoplasm of unspecified site of right female breast Subjective Interval history: The patient is feeling better overall. She is able to eat and drink normally. She says she is ambulating. There is some concern for recurrent breast cancer and hematology oncology is going to see the patient. Patient's renal function has improved. Creatinine has gone from 5.02 down to 2.18. Urine culture is growing gram-negative rods. Objective - Vital Signs Vital signs: Vital Signs Temp Pulse Resp BP Pulse Ox 06/13/16 11:36 98.1 F 73 13 130/70 94 L 06/13/16 07:54 98.2 F 65 14 118/66 98 06/13/16 03:59 98.4 F 67 16 121/59 100 06/12/16 23:54 98.2 F 71 22 115/65 100 06/12/16 20:18 97.7 F 62 18 97/64 97 06/12/16 16:57 97.9 F 60 16 108/68 100 Intake and Output 06/12/16 06/13/16 06/13/16 23:59 07:59 15:59 Intake Total 1000 / 1000 1000 / 1000 Output Total 200 / 200 180 / 180 Balance 800 / 800 820 / 820 Intake: IV Fluids 1000 / 1000 1000 / 1000 0.9 % Sodium Chloride 1, 1000 / 1000 1000 / 1000 000 ML @ 100 mls/hr IVC . Q10H AMY Rx#:[id number] Oral 0 / 0 Output: Urine 200 / 200 180 / 180 Other: Meal Lunch Percent of Meal Consumed 40% Weight 67.7 kg Blood Glucose* 117 92 87 Patient Weight 06/13/16 23:59 Weight 67.7 kg - General Appearance Exam: Patient is alert and oriented. She is in no acute distress. Clinically she looks better. Lungs essentially clear to auscultation. Heart regular rate and rhythm. Abdomen is benign. There is no peripheral edema. - Lab 06/13/16 06:39 06/13/16 06:39 Most recent lab results Calcium 8.3 mg/dL (8.6-10.8) L 06/13/16 06:39 Phosphorus 3.9 mg/dL (2.3-4.7) 06/12/16 06:46 Magnesium 2.2 mg/dL (1.6-2.6) 06/12/16 06:46 Urine Creatinine 205 mg/dL 06/12/16 06:30 Consult Discharge Plan - Plan Referrals: Shwetha Addison MD [Primary Care Provider] - 06/20/16 11:15 am (Please follow up as schedule..)
--- NOTE | 2016-06-13 14:11 | Oncology Inp Consult Note ---
<Raymond Costello Jr - Last Filed: 06/13/16 17:09> Date of Encounter: 06/13/16 Time of Encounter: 16:20 Assessment and Plan (1) Breast cancer, right Status: Resolved Assessment and plan: The patient currently sees the team [facility] for her right breast cancer. She is status post right lumpectomy, and is currently on 6 month surveillance visits. The last visit with [facility] was with her medical oncologist, Dr. Rubio on 04/05/2016. Patient inpatient for treatment of acute kidney injury and urinary tract infection. Abdominal and pelvis CT showed an incidental finding of an enlarging soft tissue density in the right breast. Correlation with mammography was recommended. She does see Dr. ford, as he did lumpectomy. She did get treated for seroma of the same breast after her lumpectomy. At this time, we suspect she may have a repeat problem with her seroma. However , the differential diagnosis of recurrent breast cancer is possible. After speaking with my attending physician Dr. Trinidad, we will prefer an outpatient workup with the patient's regular medical oncologist. Once medically stable, we agree with discharge with outpatient workup for this right breast abnormality. I spoke to the patient and her spouse at length, and while she is anxious to do something as inpatient, this may be best better served as outpatient, where she can see her regular medical oncologist, breast surgeon, and breast nurse navigator. We would like to see the patient within [address] Trinidad to assess patient this evening. Qualifiers: Breast location: unspecified site of breast Patient gender: female Qualified Code(s): C50.911 - Malignant neoplasm of unspecified site of right female breast (2) History of lumpectomy of right breast Status: Chronic (3) History of tamoxifen therapy Status: Chronic (4) Seroma of breast Status: Chronic - Data of Consult Patient: known to practice within the last 3 years Consult date: 06/13/16 Requesting Physician: Marc Vasques MD Primary Care Provider: Shwetha Addison - Consult Narrative Reason for consult: Right breast abnormality History of present illness: Ms. Narayan is a 80 year old female with medical history significant for hypertension as well as recent history of right breast cancer lumpectomy. Patient had a mammogram, and an ultrasound performed on the right breast in October of 2014. Mammogram from October 11, 2014, showed scattered areas of fibroglandular densities, 7 o'clock right breast, there was a palpated area in the posterior 8 o'clock position, 2.2 cm mass with architectural distortion was noted. Another 5-6 mm mass at the 6 o'clock was also noted. By ultrasound, right breast palpable 6 o'clock area 2 cm from nipple, 5 x 4 x 4 mm heterogeneous hypoechoic focus at the 6 o'clock, 7 o'clock radiant, 2 cm deep to the nipple, another hypoechoic mass 0.7 x 0.5 x 0.5 cm mass was noted. Biopsy of the right breast mass in three areas was consistent with ER/AL positive, invasive ductal carcinoma. Patient then underwent a lumpectomy for multifocal invasive ductal carcinoma, largest focus was 2 cm in size, grade 2, margins were negative. Lymphovascular invasion was noted. Her surgery was on 11/24/2014. One of the four lymph nodes were positive for metastatic disease. No extranodal extension, pT1c pN1a stage IIA, ER/AL strongly positive, HER-2/ondina was negative. Also noted was DCIS cribriform and papillary patterns without necrosis, atypical lobular hyperplasia, fibrocystic changes were noted. No other mammogram abnormalities were noted. ER was 100%, AL was 100%. She had some drainage of a seroma at the office when she had seen Dr. Ford on followup soon after surgery. Oncotype assay recurrence score at 7, 5 yr recurrence mortality from RAMIREZ 8% and RAMIREZ +chemo was 11%. DEXA 12/15 normal bone density Radiation treatment was completed on 03/22/15. She is now on every 6 month breast cancer surveillance with Dr. Torrey Rubio [facility]. Last surveillance visit was 04/05/2016. Patient is now admitted on unit to 4 for acute kidney injury and urinary tract infection. CT of the pelvis was taken during her stay, which revealed a right breast abnormality near the area of her lumpectomy. Medical oncology was consulted to assess the situation and speak with the patient Past Med Surg Social Fam HX - Past Medical History Medical history: arthritis, cancer (Right breast cancer with lumpectomy 2014), hypertension, malignancy, osteoporosis, other Psychiatric history: anxiety - Past Surgical History Surgical History: breast surgery, cancer surgery, cataract, cholecystectomy, hysterectomy, ALINA/BSO, other - Social History Smoking Status: Former smoker Packs per day: Smoked 2 packs per day for 20 years. Quit smoking 20 years ago. Smokeless Tobacco Status: No Alcohol use: none Drug use: none - Family History Mother History Unknown: Yes Adopted: Yes Name: Agnes Mcdaniel Family Member Ethnicity: Non- Living Status: Age at : 66 Cause of : paratenitis Hx Family Cardiac Disorders: No Hx Family Respiratory Disorders: No Hx Family Cancer: No Hx Family GI Disorders: No Hx Family Genitourinary Disorders: No Hx Family Endocrine Disorder: Yes Hx Family Musculoskeletal Disorders: No Hx Family Neuromuscular Disorders: No Hx Family Neurologic Disorders: No Hx Family HEENT Disorders: No Hx Family Autoimmune Disorders: No Hx Family Reproductive Disorders: No Hx Family Psychosocial Disorders: No Hx Family Medical Disorders: No Medications and Allergies Atenolol [Tenormin] 25 mg PO DAILY 01/10/15 [History] OxyCODONE Immed Rel [Roxicodone 5 MG] 5 mg PO BID PRN #60 tab 01/11/16 [Rx] Venlafaxine XR (24 HR) [Effexor XR] 37.5 mg PO DAILY #90 cap.er.24h 01/11/16 [Rx ] Losartan/Hydrochlorothiazide [Hyzaar 100-12.5 Tablet] 1 each PO DAILY 02/02/16 [ History] Gabapentin [Neurontin] 300 mg PO BID #60 capsule 02/23/16 [Rx] Tamoxifen Citrate 20 mg PO DAILY #30 tab 04/05/16 [Rx] Valacyclovir HCl [Valtrex] 1,000 mg PO Q12H #10 tab 04/05/16 [Rx] Anastrozole [Arimidex] 1 mg PO DAILY 06/11/16 [History] Fluticasone Propionate Nasal [Flonase] 50 mcg NS BID 06/11/16 [History] Ipratropium [place] 1 spray NS BID 06/11/16 [History] Multivitamin [Multi-Day Vitamins] 1 each PO DAILY 06/11/16 [History] Allergies KELSEY Inhibitors Adverse Reaction (Verified 01/10/15 13:07) Cough Constitutional: Present: fatigue Oncology - Exam - Constitutional Vitals: Temp Pulse Resp BP Pulse Ox 98.1 F 73 13 130/70 94 L 06/13/16 11:36 06/13/16 11:36 06/13/16 11:36 06/13/16 11:36 06/13/16 11:36 - Head Head exam: Present: atraumatic, normal inspection - Eye Eye exam: Present: normal appearance, sclera anicteric - GI/Abdominal GI/Abdominal exam: Present: normal bowel sounds, soft - Extremities Exam Extremities exam: Present: full ROM, normal inspection - Neurological Exam Neurological exam: Present: alert, CN II-XII intact, oriented X3 - Psychiatric Psychiatric exam: Present: anxious (due to new right breast opacity), normal affect Oncology - Results - Labs Labs: Short CBC 06/13/16 Range/Units 06:39 WBC 4.5 (4.3-11.1) K/mcL Hgb 9.1 L D (11.5-15.4) g/dL Hct 28.1 L (35.3-44.9) % Plt Count 185 (140-400) K/mcL Neutrophils # 3.1 (1.6-8.9) K/mcL BMP 06/13/16 06:39 Sodium 139 Potassium 5.1 H Chloride 113 H Carbon Dioxide 19 BUN 34 H D Creatinine 2.18 H D Glucose 91 Calcium 8.3 L Liver Function 06/13/16 Range/Units 06:39 Total Bilirubin 0.5 (0.2-1.2) mg/dL AST 15 (5-34) Units/L ALT 15 (0-55) Units/L Alkaline Phosphatase 47 (38-126) Units/L Albumin 2.6 L D (3.5-5.0) g/dL Consult Discharge Plan - Plan Referrals: Shwetha Addison MD [Primary Care Provider] - 06/20/16 11:15 am (Please follow up as schedule..) - Attending Attestation I examined this patient and my medical decision-making was reviewed with the BACTERIOLOGIST DAIRY/PA/Advanced Practice Nurse/Resident Physician. I agree with the documented findings, disposition and treatment plan as described except to the extent set forth below. <Paxton Trinidad - Last Filed: 06/14/16 07:38> Date of Encounter: 06/13/16 - Data of Consult Requesting Physician: Marc Vasques MD Primary Care Provider: Shwetha Addison - Consult Narrative History of present illness: I saw and personally examined Ms. Narayan at her bedside today and reviewed the chart for details of ongoing care by hospital team. I verified/agree with the history and physical exam findings documented by Raymond Costello CNP above. She is known to oncology from previous treatment of early stage of (stage IIa) right-sided breast cancer. She had lumpectomy 11/24/14 followed by adjuvant radiotherapy by Dr. Mayorga which was completed in March 2015. She is an adjuvant endocrine therapy with tamoxifen since February 2016 and was last in the office 04/05/16 for scheduled follow-up with Dr. Rubio. Her last mammogram from November 2015 was unremarkable. She is currently hospitalized for urinary tract infection and abdomen CT for evaluation of flank pain incidentally noted an enlarging soft tissue density in the right breast compared to September 2014. She is making steady improvement with ongoing management of her UTI and anticipates discharge today. She has been afebrile since admission and rest of vital signs stable. Systems exam documented above was verified by me today. Additionally, breast exam reveals posttreatment changes of the right breast with no palpable lumps, skin changes or nipple abnormalities. No tender areas. Left breast unremarkable. Lab studies show anemia with a significant decline in hemoglobin from 12 in admissions 0.5 this morning. RBC indices indicate macrocytosis I personally reviewed and interpreted patient's most recent imaging studies dated 06/12/16. I discussed the findings with the patient today. Breast cancer: I had a detailed discussion with the patient regarding diagnostic considerations for her newly detected radiographic abnormality and informed her that it appears clinically compatible with postoperative changes. Breast density was present on CAT scan from almost 2 years ago and I wonder if there may be some underlying component that predates her initial breast cancer diagnosis. This has marginally increased over serial scans but I think is reasonable to repeat a mammogram as recommended by radiology for further evaluation. Since she is making steady, incremental improvement, I think she can be discharged when she is medically optimal and will arrange for outpatient mammogram and further evaluation is needed. Anemia: No obvious explanation for significant decline in hemoglobin since admission. On reviewing her lab work, she had borderline B12 levels from blood work in January 2016. Anemia is macrocytic picture and may indicate B12 deficiency. We recommend anemia workup including: Iron, ferritin, iron saturation, B12 level , MMA, thyroid panel, repeat count, LDH, haptoglobin. If there is further decline in her hemoglobin, we'll recommend transitioning to maintain hemoglobin of 7 or greater. Again anemia can be followed as an outpatient by Dr. Rubio if she is stable otherwise. We'll follow the patient along side you during this hospitalization but please do not hesitate to call regarding interval oncologic questions that may arise as she is in-house. Thanks for involving us in her care. Oncology - Exam - Constitutional Vitals: Temp Pulse Resp BP Pulse Ox 98.5 F 81 16 128/75 100 06/14/16 01:42 06/14/16 01:42 06/14/16 01:42 06/14/16 01:42 06/14/16 01:42 Oncology - Results - Labs Labs: Short CBC 06/13/16 Range/Units 06:39 WBC 4.5 (4.3-11.1) K/mcL Hgb 9.1 L D (11.5-15.4) g/dL Hct 28.1 L (35.3-44.9) % Plt Count 185 (140-400) K/mcL Neutrophils # 3.1 (1.6-8.9) K/mcL BMP 06/13/16 06:39 Sodium 139 Potassium 5.1 H Chloride 113 H Carbon Dioxide 19 BUN 34 H D Creatinine 2.18 H D Glucose 91 Calcium 8.3 L Liver Function 06/13/16 Range/Units 06:39 Total Bilirubin 0.5 (0.2-1.2) mg/dL AST 15 (5-34) Units/L ALT 15 (0-55) Units/L Alkaline Phosphatase 47 (38-126) Units/L Albumin 2.6 L D (3.5-5.0) g/dL
[2016-06-13] MEDS ORDERED: Calcium Gluconate 2,000 MG in D5% in Water 100 ML IVPB ONE (15:27)
[2016-06-13] MEDS: *HR* OxyCODONE Immed Rel 5 MG TABLET PO PRN (20:53)
[2016-06-14] MEDS: *HR* Heparin 5,000 UNIT/ML VIAL SQ SCH (05:17)
[2016-06-14 06:01] LABS: Basophils % 0.4 %; Eosinophils # 0.4 K/mcL (0.0-0.6); Eosinophils % 8.7 %; Hematocrit 26.6 % (35.3-44.9); Hemoglobin 8.4 g/dL (11.5-15.4); Immature Granulocytes % 0.4 % (0-4); Lymphocytes # 1.2 K/mcL (0.6-4.6); Lymphocytes % 27.4 %; Mean Corpuscular HGB Conc 31.6 g/dL (31.6-35.5); Mean Corpuscular Hemoglobin 32.1 pg (28.0-33.3); Mean Corpuscular Volume 101.5 fL (83.0-100.0); Mean Platelet Volume 9.5 fL (9.4-12.4); Monocytes # 0.5 K/mcL (0.0-1.3); Neutrophils # 2.4 K/mcL (1.6-8.9); Platelet Count 165 K/mcL (140-400); Red Blood Count 2.62 M/mcL (3.82-4.97); Segmented Neutrophils % 53.1 %
[2016-06-14 06:23] LABS: Calcium 8.3 mg/dL (8.6-10.8); Potassium 4.7 mEq/L (3.5-4.5)
[2016-06-14 06:34] LABS: Platelet Estimate Normal (Normal); Reactive Lymphocytes Present (Not Present)
[2016-06-14] MEDS: 0.9 % Sodium Chloride 1,000 ML IVC SCH (09:14)
--- NOTE | 2016-06-14 10:15 | Discharge Summary ---
<Aysha Araya - Last Filed: 06/14/16 14:33> Date of Encounter: 06/14/16 Time of Encounter: 08:10 - Discharge Diagnosis (1) Acute kidney injury superimposed on CKD Priority: Primary Status: Acute (2) Urinary tract infection Priority: Primary Status: Acute Qualifiers: Urinary tract infection type: acute cystitis Hematuria presence: with hematuria Qualified Code(s): N30.01 - Acute cystitis with hematuria (3) Breast cancer, right Priority: Secondary Status: Resolved Qualifiers: Breast location: unspecified site of breast Patient gender: female Qualified Code(s): C50.911 - Malignant neoplasm of unspecified site of right female breast - Discharge Medications Prescriptions: Levofloxacin [Levaquin] 750 mg PO Q48H #4 tablet Home Medications: Atenolol [Tenormin] 25 mg PO DAILY 01/10/15 [History] OxyCODONE Immed Rel [Roxicodone 5 MG] 5 mg PO BID PRN #60 tab 01/11/16 [Rx] Venlafaxine XR (24 HR) [Effexor Xr] 37.5 mg PO DAILY #90 cap.er.24h 01/11/16 [Rx ] Losartan/Hydrochlorothiazide [Hyzaar 100-12.5 Tablet] 1 each PO DAILY 02/02/16 [ History] Gabapentin [Neurontin] 300 mg PO BID #60 capsule 02/23/16 [Rx] Tamoxifen Citrate 20 mg PO DAILY #30 tab 04/05/16 [Rx] Valacyclovir HCl [Valtrex] 1,000 mg PO Q12H #10 tab 04/05/16 [Rx] Anastrozole [Arimidex] 1 mg PO DAILY 06/11/16 [History] Fluticasone Propionate Nasal [Flonase] 50 mcg NS BID 06/11/16 [History] Ipratropium [place] 1 spray NS BID 06/11/16 [History] Multivitamin [Multi-Day Vitamins] 1 each PO DAILY 06/11/16 [History] Levofloxacin [Levaquin] 750 mg PO Q48H #4 tablet 06/14/16 [Rx] Allergies/Adverse Reactions: Allergies KELSEY Inhibitors Adverse Reaction (Verified 01/10/15 13:07) Cough Procedures/tests Complete & Pending: Procedures Performed prior 72 hours Category Date Time Status Retroperitoneal Ultrasound - Complete [US Exams 06/12/16 14:00 Completed retroperitoneal comp] [US] Routine Date of admission: 06/12/16 01:46 Primary care physician: Shwetha Addison Consults: 06/12/16 04:15 Consult to Dialysis [CONS] ONCE 06/12/16 08:00 Consult to Physician [CONS] Routine Consulting Provider: Srinath Ryan Reason for Consult: Acute stage V renal failure. Etiology yet to be identified. Long-standing chronic hypertension. Please evaluate and advise. Call Completed: No 06/13/16 12:40 Consult to Oncology Hematology [CONS] Routine Consulting Provider: Raymond Costello Jr Reason for Consult: R. breast mass, resident Dr. Araya d/w Nhan Costello Call Completed: Yes - Patient Status Disposition: Home, Self-Care Condition: Good Functional capacity at discharge: independent ambulation Overall status at discharge: patient is progressing back to baseline - Discharge Instructions Instructions: Levofloxacin (By mouth), Acute Kidney Injury (DC), Urinary Tract Infection in Women (DC) Follow Up With: Shwetha Addison MD [Primary Care Provider] - 06/20/16 11:15 am (Please follow up as schedule..) Torrey Rubio MD [Partnered Physician] - Srinath Ryan DO [Non-Partnered Physician] - Additional Instructions: Follow-up with PCP on 06/20/15 as scheduled Follow-up with medical oncology in 5 days Follow-up with nephrology in one week - Diet and Activity Activity: increase activity as tolerated Diet: other (Renal Diet) Hospital course: Ms. Narayan is a 80 year old female who presented to [facility] with a feeling of generalized weakness, nausea, vomiting, and elevated Bun and creatinine. Creatinine on admission was 5.02. Pt had urinalysis with evidence of UTI. She was subsequently started on Rocephin for empirical antibiotic coverage. Urine cultures were positive for Klebsiella Pneumonia. Pt was given IVF for rehydration. Nephrology was consulted. Retroperitoneal ultrasound was ordered to better assess the kidneys for hydronephrosis. Throughout hospital stay, kidney function continued to improve and creatinine today was 1.50. A CT abd/ pelvis was done in the ED which showed no acute process, however an enlarging soft tissue density was seen in the right breast with the recommendation for mammography correlation. Pt has a known history of breast cancer, and oncology was consulted. Pt was found to be anemia during stay as well. Heme/onc recommended iron panel, ferritin, B12, MMA, haptoglobin, however states that if pt is otherwise medically clear, this can be followed up outpt. Oncology recommended outpatient follow-up in 5 days. - Time Spent with Patient Total time spent providing and/or coordinating discharge services: Greater than 30 minutes - Constitutional Vitals: Temp Pulse Resp BP Pulse Ox 98.1 F 76 18 136/71 96 06/14/16 06:50 06/14/16 06:50 06/14/16 06:50 06/14/16 06:50 06/14/16 09:46 General appearance: Present: A&O X 3, no acute distress, answers questions appropriately - Head Head exam: Present: atraumatic, normal inspection, normocephalic - Eye Eye exam: Present: PERRL, conjuntiva pink, sclera anicteric - ENT ENT exam: Present: mucous membranes moist - Neck Neck exam general surgery: Present: supple, trachea midline - Respiratory Respiratory exam: Present: CTAB. Absent: rales, rhonchi, wheezes - Cardiovascular Cardiovascular exam: Present: RRR, +S1, +S2 - GI/Abdominal GI/Abdominal exam: Present: normal bowel sounds, soft. Absent: rebound, tenderness - Extremities Exam Extremities exam: Present: warm. Absent: cyanotic, pedal edema - Neurological Exam Neurological exam: Present: alert, CN II-XII intact, oriented X3, no focal deficits - Skin Skin exam: Present: dry, intact - VTE Documentation of Mechanical Device: Intermittent pneumatic compression device <Marc Vasques - Last Filed: 06/14/16 18:02> Date of Encounter: 06/14/16 Procedures/tests Complete & Pending: Procedures Performed prior 72 hours Category Date Time Status Retroperitoneal Ultrasound - Complete [US Exams 06/12/16 14:00 Completed retroperitoneal comp] [US] Routine Date of admission: 06/12/16 01:46 Primary care physician: Shwetha Addison Consults: 06/12/16 04:15 Consult to Dialysis [CONS] ONCE 06/12/16 08:00 Consult to Physician [CONS] Routine Consulting Provider: Srinath Ryan Reason for Consult: Acute stage V renal failure. Etiology yet to be identified. Long-standing chronic hypertension. Please evaluate and advise. Call Completed: No 06/13/16 12:40 Consult to Oncology Hematology [CONS] Routine Consulting Provider: Raymond Costello Jr Reason for Consult: R. breast mass, resident Dr. Araya d/w Nhan Costello Call Completed: Yes Hospital course: Ms. Narayan is a 80 year old female - Time Spent with Patient Total time spent providing and/or coordinating discharge services: - Constitutional Vitals: Temp Pulse Resp BP Pulse Ox 98.1 F 74 17 112/64 96 06/14/16 10:51 06/14/16 10:51 06/14/16 10:51 06/14/16 10:51 06/14/16 10:51 - Attending Attestation I examined this patient and my medical decision-making was reviewed with the Resident Physician. I agree with the documented findings, disposition and treatment plan as described except to the extent set forth below. Patient is medically stable for discharge home. Her kidney function is back to normal. She has been evaluated by oncology for her breast mass and has close follow-up with their service. For urinary tract infection she will receive 5 more days of oral antibiotic.
--- NOTE | 2016-06-14 10:35 | Nephrology Progress Note ---
Date of Encounter: 06/14/16 Time of Encounter: 10:05 Subjective Interval history: States feeling better, eating and drinking. Thinks is being discharged home today. A/P-STONE/CKD in setting of volume depletion and UTI. Renal ultrasound showed evidence of chronic kidney disease with increased echogenicity and a smaller right kidney.Will stop IV fluids as is eating and drinking well. If dischaged home will follow in office as outpatient. Objective - Vital Signs Vital signs: Vital Signs Temp Pulse Resp BP Pulse Ox 06/14/16 09:46 96 06/14/16 06:50 98.1 F 76 18 136/71 99 06/14/16 05:46 98.2 F 75 17 134/76 99 06/14/16 01:42 98.5 F 81 16 128/75 100 06/13/16 19:35 98 F 73 16 110/66 96 06/13/16 15:35 98.2 F 73 14 105/65 95 06/13/16 11:36 98.1 F 73 13 130/70 94 L Intake and Output 06/13/16 06/14/16 06/14/16 23:59 07:59 15:59 Intake Total 1000 / 1000 1080 / 1080 Output Total 750 / 750 Balance 1000 / 1000 330 / 330 Intake: IV Fluids 1000 / 1000 1000 / 1000 0.9 % Sodium Chloride 1, 1000 / 1000 1000 / 1000 000 ML @ 100 mls/hr IVC . Q10H AMY Rx#:[id number] Oral 80 / 80 Output: Urine 750 / 750 Other: Meal Breakfast Percent of Meal Consumed 45% # Voids 2 Weight 67.8 kg Blood Glucose* 136 88 Patient Weight 06/14/16 23:59 Weight 67.8 kg - General Appearance General appearance: Present: well-developed, well-nourished, appears started age EENT: Present: mucous membranes moist Neck: Present: no JVD Respiratory: Present: clear Cardiology: Present: no murmurs, no edema, regular rate, regular rhythm Gastrointestinal: Present: normoactive bowel sounds, no tenderness, no guarding Integumentary: Present: warm and dry Neurologic: Present: alert and oriented x3 Psychiatric: Present: mood/affect appropriate, cooperative - Lab 06/14/16 05:25 06/14/16 05:25 Most recent lab results Calcium 8.3 mg/dL (8.6-10.8) L 06/14/16 05:25 Phosphorus 3.9 mg/dL (2.3-4.7) 06/12/16 06:46 Magnesium 2.2 mg/dL (1.6-2.6) 06/12/16 06:46 Urine Creatinine 205 mg/dL 06/12/16 06:30 - VTE Documentation of Mechanical Device: Intermittent pneumatic compression device Consult Discharge Plan - Plan Additional Instructions: Follow-up with PCP on 06/20/15 as scheduled Follow-up with medical oncology in 5 days Follow-up with nephrology in one week Referrals: Srinath Ryan DO [Non-Partnered Physician] - Torrey Rubio MD [Partnered Physician] - Shwetha Addison MD [Primary Care Provider] - 06/20/16 11:15 am (Please follow up as schedule..)
[2016-06-14 10:51] LABS: % Iron Saturation 43 % (15-50); Iron 80 mcg/dL (50-170); Lactate Dehydrogenase 138 Units/L (159-327); Transferrin 133 mg/dL (180-382)
[2016-06-14 10:55] VITALS: BP 112/64
[2016-06-14 11:01] LABS: Ferritin 606 ng/ml (5-204)
[2016-06-15 08:13] LABS: ANA IgG by ELISA NONE DETECTED (None Detected)
[2016-06-18 08:30] LABS: MMA (VIT B12 STATUS) 0.14 umol/L (0.00-0.40)
[2016-06-19 11:31] LABS: Alpha 2 Globulin (PEP) 0.8 g/dL (0.5-1.1); Beta Globulin (PEP) 0.8 g/dL (0.5-1.1)
[2016-06-19 11:33] LABS: PEP Impression See immunotyping
== END 2016-06-14 14:28 | disposition home or self-care (01) | DRG 682 ==
LOC: EMEROO 21:49 → SUATTDRO 06-12 01:46 → 2ANU 06-12 01:46
PROVIDERS: ADMIT Family Medicine; ATTEND Internal Medicine